=== PATIENT | female | born 1995 | race African-American/Black ===

== ENCOUNTER 2025-03-13 11:13 | Outpatient (CLI) | payer OTHER | END 2025-03-13 11:14 | disposition home or self-care (01) | LOC: CSHWCC 11:13 | PROVIDERS: ATTEND Nurse Practitioner Family | DX: T81.328D Disruption or dehiscence of closure of other specified internal operation (surgical) wound, subsequent encounter (principal); T81.31XD Disruption of external operation (surgical) wound, not elsewhere classified, subsequent encounter; S31.105S Unspecified open wound of abdominal wall, periumbilic region without penetration into peritoneal cavity, sequela; K43.6 Other and unspecified ventral hernia with obstruction, without gangrene | CPT/HCPCS: 11042 ==

== ENCOUNTER 2025-03-19 10:59 | Outpatient (CLI) | payer OTHER | END 2025-03-19 11:00 | disposition home or self-care (01) | LOC: CSHWCC 10:59 | PROVIDERS: ATTEND Nurse Practitioner Family | DX: T81.328D Disruption or dehiscence of closure of other specified internal operation (surgical) wound, subsequent encounter (principal); T81.31XD Disruption of external operation (surgical) wound, not elsewhere classified, subsequent encounter; S31.105S Unspecified open wound of abdominal wall, periumbilic region without penetration into peritoneal cavity, sequela; K43.6 Other and unspecified ventral hernia with obstruction, without gangrene | CPT/HCPCS: 11042; 97607 ==

== ENCOUNTER 2025-03-26 15:50 | Outpatient (CLI) | payer OTHER | END 2025-03-26 15:51 | disposition home or self-care (01) | LOC: CSHWCC 15:50 | PROVIDERS: ATTEND Nurse Practitioner Family | DX: T81.328D Disruption or dehiscence of closure of other specified internal operation (surgical) wound, subsequent encounter (principal); T81.31XD Disruption of external operation (surgical) wound, not elsewhere classified, subsequent encounter; S31.105S Unspecified open wound of abdominal wall, periumbilic region without penetration into peritoneal cavity, sequela; K43.6 Other and unspecified ventral hernia with obstruction, without gangrene | CPT/HCPCS: 11042; 99213; G0463 ==

== ENCOUNTER 2025-04-02 16:09 | Outpatient (CLI) | payer OTHER | END 2025-04-02 16:10 | disposition home or self-care (01) | LOC: CSHWCC 16:09 | PROVIDERS: ATTEND Nurse Practitioner Family | DX: T81.31XD Disruption of external operation (surgical) wound, not elsewhere classified, subsequent encounter (principal); T81.328D Disruption or dehiscence of closure of other specified internal operation (surgical) wound, subsequent encounter; S31.105S Unspecified open wound of abdominal wall, periumbilic region without penetration into peritoneal cavity, sequela; K43.6 Other and unspecified ventral hernia with obstruction, without gangrene | CPT/HCPCS: 11042 ==

== ENCOUNTER 2025-04-09 14:10 | Outpatient (CLI) | payer OTHER | END 2025-04-09 14:11 | disposition home or self-care (01) | LOC: CSHWCC 14:10 | PROVIDERS: ATTEND Nurse Practitioner Family | DX: T81.31XD Disruption of external operation (surgical) wound, not elsewhere classified, subsequent encounter (principal); T81.328D Disruption or dehiscence of closure of other specified internal operation (surgical) wound, subsequent encounter; S31.105S Unspecified open wound of abdominal wall, periumbilic region without penetration into peritoneal cavity, sequela; K43.6 Other and unspecified ventral hernia with obstruction, without gangrene | CPT/HCPCS: 11042 ==

== ENCOUNTER 2025-04-18 12:19 | Outpatient (CLI) | payer OTHER | END 2025-04-18 12:20 | disposition home or self-care (01) | LOC: CSHWCC 12:19 | PROVIDERS: ATTEND Nurse Practitioner Family | DX: T81.31XD Disruption of external operation (surgical) wound, not elsewhere classified, subsequent encounter (principal); T81.328D Disruption or dehiscence of closure of other specified internal operation (surgical) wound, subsequent encounter; S31.105S Unspecified open wound of abdominal wall, periumbilic region without penetration into peritoneal cavity, sequela; K43.6 Other and unspecified ventral hernia with obstruction, without gangrene | CPT/HCPCS: 11042 ==

== ENCOUNTER 2025-04-25 13:14 | Outpatient (CLI) | payer OTHER | END 2025-04-25 13:15 | disposition home or self-care (01) | LOC: CSHWCC 13:14 | PROVIDERS: ATTEND Nurse Practitioner Family | DX: T81.31XD Disruption of external operation (surgical) wound, not elsewhere classified, subsequent encounter (principal); T81.328D Disruption or dehiscence of closure of other specified internal operation (surgical) wound, subsequent encounter; S31.105S Unspecified open wound of abdominal wall, periumbilic region without penetration into peritoneal cavity, sequela; K43.6 Other and unspecified ventral hernia with obstruction, without gangrene | CPT/HCPCS: 11042 ==

== ENCOUNTER 2025-05-02 14:13 | Outpatient (CLI) | payer OTHER | END 2025-05-02 14:14 | disposition home or self-care (01) | LOC: CSHWCC 14:13 | PROVIDERS: ATTEND Nurse Practitioner Family | DX: T81.31XD Disruption of external operation (surgical) wound, not elsewhere classified, subsequent encounter (principal); T81.328D Disruption or dehiscence of closure of other specified internal operation (surgical) wound, subsequent encounter; S31.105S Unspecified open wound of abdominal wall, periumbilic region without penetration into peritoneal cavity, sequela; K43.6 Other and unspecified ventral hernia with obstruction, without gangrene | CPT/HCPCS: 99213; G0463 ==

== ENCOUNTER 2025-07-28 16:51 | Emergency (ER) | payer OTHER ==
[2025-07-28] MEDS ORDERED: Ketorolac Tromethamine 30 MG (1 mL) VIAL ONE (18:40)
== END 2025-07-28 18:56 | disposition home or self-care (01) ==
LOC: CSHERS 16:51
DX: K08.89 Other specified disorders of teeth and supporting structures (principal); K02.9 Dental caries, unspecified; K03.81 Cracked tooth; E66.9 Obesity, unspecified
CPT/HCPCS: 96372; 99282; J1885